=== PATIENT | female | born 1965 | race Caucasian/White ===

== ENCOUNTER 2019-01-25 10:32 | Day surgery (SDC) | payer OTHER ==
[2019-01-24 15:22] VITALS: BMI 25.7
[2019-01-25] MEDS ORDERED: PROPOFOL 20 ML ONE ×2 (12:39)
[2019-01-25 16:14] VITALS: TEMP 97.6
[2019-01-25 16:15] VITALS: PULSE 70
[2019-01-25 16:19] VITALS: BP 100/60
== END 2019-01-25 13:50 | disposition home or self-care (01) ==
LOC: FASU-ENDO 10:32
PROVIDERS: ATTEND Internal Medicine Gastroenterology
PROC: 0DJD8ZZ Inspection of Lower Intestinal Tract, Via Natural or Artificial Opening Endoscopic (ICD-10-PCS; principal; 2019-01-25 12:51)
DX: Z12.11 Encounter for screening for malignant neoplasm of colon (principal); K64.0 First degree hemorrhoids
CPT/HCPCS: 84703